=== PATIENT | male | born 1945 | race Caucasian/White ===

== ENCOUNTER 2019-12-30 11:20 | Outpatient (CLI) | payer MEDICARE, OTHER ==
[2019-12-30] MEDS ORDERED: VISIPAQUE 320 MG/ML, 150ML BOTTLE ONE (14:47)
== END 2019-12-30 23:59 | disposition home or self-care (01) ==
LOC: CVU 11:20 → RAD 23:59
PROVIDERS: ATTEND Internal Medicine Cardiovascular Disease
DX: Z01.812 Encounter for preprocedural laboratory examination (principal); Z20.828 Contact with and (suspected) exposure to other viral communicable diseases; I35.0 Nonrheumatic aortic (valve) stenosis; R06.02 Shortness of breath; R94.2 Abnormal results of pulmonary function studies; R91.1 Solitary pulmonary nodule; K82.8 Other specified diseases of gallbladder; I65.23 Occlusion and stenosis of bilateral carotid arteries; I70.0 Atherosclerosis of aorta
CPT/HCPCS: 36415; 71275; 74174; 87635; 93880; 94010; 94726; 94729; Q9967

== ENCOUNTER 2020-01-05 07:42 | Inpatient (IN) | payer MEDICARE, OTHER ==
[~2020-01-05] VITALS: Ht 182.9 cm; Wt 83.3 kg
[2020-01-05] MEDS ORDERED: SODIUM CHLORIDE 0.9% 1,000 ML IV ONE (08:49)
[2020-01-05 08:59] VITALS: BP 144/87
[2020-01-05] MEDS ORDERED: ONDANSETRON 2MG/ML, 2ML IVPush PRN ×2 (09:00→12:30)
[2020-01-05 09:20] LABS: BASOPHILS # (AUTO) 0.01 x10^3/uL (0-0.1); BASOPHILS % (AUTO) 0 % (0-1); EOSINOPHILS # (AUTO) 0.07 x10^3/uL (0-0.4); EOSINOPHILS % (AUTO) 1 % (1-7); LYMPHOCYTES # (AUTO) 1.13 x10^3/uL (1-3.4); LYMPHOCYTES % (AUTO) 15 % (22-44); MD NO; MEAN CORPUSCULAR HEMOGLOBIN 30.7 pg (27.5-34.5); MEAN CORPUSCULAR HGB CONC 33.3 g/dL (33.2-36.2); MONOCYTES # (AUTO) 0.41 x10^3/uL (0.2-0.8); MONOCYTES % (AUTO) 5 % (2-9); NEUTROPHILS # (AUTO) 5.87 x10^3/uL (1.8-6.8); NEUTROPHILS % (AUTO) 78 % (42-75); PLATELET COUNT 147 x10^3/uL (130-400); RED BLOOD COUNT 5.09 x10^6/uL (4.38-5.82); RED CELL DISTRIBUTION WIDTH 12.9 % (9.4-14.8)
[2020-01-05] MEDS ORDERED: ASPI81TA45 PO (09:28)
[2020-01-05] MEDS ORDERED: LOVA40TA2 PO (09:28)
[2020-01-05] MEDS ORDERED: MULT-464 PO (09:28)
[2020-01-05] MEDS ORDERED: LISI-167 PO (09:28)
[2020-01-05 09:30] LABS: INTERNATIONAL NORMALIZED RATIO 0.98 (0.93-1.1); PROTHROMBIN TIME 10.1 Seconds (9.6-11.5)
[2020-01-05] MEDS ORDERED: PLEASE ENTER HEIGHT AND WEIGHT MC SCH (09:30)
[2020-01-05 09:31] LABS: ALANINE AMINOTRANSFERASE 23 U/L (12-78); ANION GAP 6 mmol/L (5-15); CALCIUM 8.9 mg/dL (8.5-10.1); CHLORIDE 113 mmol/L (98-107)
[2020-01-05 09:34] LABS: ALKALINE PHOSPHATASE 92 U/L (45-117); BILIRUBIN,TOTAL 0.4 mg/dL (0.2-1.0); TOTAL PROTEIN 7.3 g/dL (6.4-8.2)
[2020-01-05] MEDS ORDERED: FENTANYL PF 100 MCG/2ML ONE ×2 (11:06→12:07)
[2020-01-05] MEDS ORDERED: LIDOCAINE-MPF 2% ,5ML ONE (11:10)
[2020-01-05] MEDS ORDERED: HEPARIN 1,000 UNITS/ML, 10ML ONE ×2 (11:10)
[2020-01-05] MEDS ORDERED: CEFAZOLIN 1,000 MG ONE (11:46)
[2020-01-05] MEDS ORDERED: PROPOFOL 10 MG/ML, 20ML ONE (11:46)
[2020-01-05] MEDS ORDERED: ROCURONIUM 10 MG/ML,10ML ONE (11:46)
[2020-01-05] MEDS ORDERED: SUGAMMADEX 200 MG/2 ML IVPush ONE (11:46)
[2020-01-05] MEDS ORDERED: SUCCINYLCHOLINE 20 MG/ML, 10ML ONE (11:46)
[2020-01-05] MEDS ORDERED: ONDANSETRON 2MG/ML, 2ML ONE (11:46)
[2020-01-05] MEDS ORDERED: DEXAMETHASONE 4 MG/ML, 1ML ONE (11:46)
[2020-01-05] MEDS ORDERED: PHENYLEPHRINE 10 MG/ML ONE (11:55)
[2020-01-05] MEDS ORDERED: PROTAMINE SULFATE 10 MG/ML, 5ML ONE (12:03)
[2020-01-05] MEDS ORDERED: LABETALOL 20 MG/4 ML IVPush PRN (12:30)
[2020-01-05] MEDS ORDERED: CLOPIDOGREL 300 MG TABLET PO ONE (12:30)
[2020-01-05] MEDS ORDERED: ACETAMINOPHEN 325 MG TABLET PO PRN (12:30)
[2020-01-05] MEDS ORDERED: hydrALAzine 20 MG/ML, 1ML IVPush PRN (12:30)
[2020-01-05] MEDS ORDERED: CLOPIDOGREL 300 MG TABLET ONE (13:30)
[2020-01-05 14:09] VITALS: BP 146/75
[2020-01-05] MEDS: ASPIRIN 81 MG TABLET EC PO SCH (14:21)
[2020-01-05] MEDS: LISINOPRIL 10 MG TABLET PO SCH (14:21)
[2020-01-05] MEDS: HYDROcodone/APAP 5/325 TABLET PO PRN ×2 (15:29→17:51)
[2020-01-05 19:12] VITALS: BP 136/84
[2020-01-05] MEDS ORDERED: LOVASTATIN 40 MG TABLET PO SCH (21:00)
[2020-01-06] VITALS: BP 120/70
[2020-01-06 05:06] LABS: ANION GAP 6 mmol/L (5-15); CALCIUM 8.8 mg/dL (8.5-10.1); CHLORIDE 107 mmol/L (98-107)
[2020-01-06 05:07] LABS: CREATININE 1.04 mg/dL (0.7-1.3)
[2020-01-06 05:14] LABS: BASOPHILS % (AUTO) 0 % (0-1); EOSINOPHILS # (AUTO) 0.01 x10^3/uL (0-0.4); EOSINOPHILS % (AUTO) 0 % (1-7); LYMPHOCYTES # (AUTO) 0.88 x10^3/uL (1-3.4); LYMPHOCYTES % (AUTO) 7 % (22-44); MD NO; MEAN CORPUSCULAR HEMOGLOBIN 30.8 pg (27.5-34.5); MEAN CORPUSCULAR HGB CONC 33.2 g/dL (33.2-36.2); MEAN PLATELET VOLUME 8.7 fL (7.4-10.4); MONOCYTES # (AUTO) 0.52 x10^3/uL (0.2-0.8); MONOCYTES % (AUTO) 4 % (2-9); NEUTROPHILS # (AUTO) 10.69 x10^3/uL (1.8-6.8); NEUTROPHILS % (AUTO) 88 % (42-75); PLATELET COUNT 141 x10^3/uL (130-400); RED BLOOD COUNT 4.46 x10^6/uL (4.38-5.82); RED CELL DISTRIBUTION WIDTH 13.1 % (9.4-14.8)
[2020-01-06 08:06] VITALS: BP 120/63
[2020-01-06] MEDS ORDERED: CLOPIDOGREL 75 MG TABLET PO SCH (09:00)
[2020-01-06] MEDS: ASPIRIN 81 MG TABLET EC PO SCH (10:03)
[2020-01-06] MEDS: LISINOPRIL 10 MG TABLET PO SCH (10:03)
[2020-01-06] MEDS ORDERED: CLOP75TA PO (10:52)
[2020-01-06 13:16] VITALS: BP 124/75
== END 2020-01-06 16:05 | disposition home or self-care (01) | DRG 266 ==
LOC: ORIP 07:42 → 5SO 13:52 → DCLOUNGE 01-06 15:55
PROVIDERS: ADMIT Internal Medicine Cardiovascular Disease; ATTEND Internal Medicine Cardiovascular Disease
PROC: B24BZZ4 Ultrasonography of Heart with Aorta, Transesophageal (ICD-10-PCS; 2020-01-05)
PROC: B3101ZZ Fluoroscopy of Thoracic Aorta using Low Osmolar Contrast (ICD-10-PCS; 2020-01-05)
PROC: 02RF38Z Replacement of Aortic Valve with Zooplastic Tissue, Percutaneous Approach (ICD-10-PCS; principal; 2020-01-05 12:00)
DX: I35.2 Nonrheumatic aortic (valve) stenosis with insufficiency (principal); Z00.6 Encounter for examination for normal comparison and control in clinical research program; I50.33 Acute on chronic diastolic (congestive) heart failure; I44.7 Left bundle-branch block, unspecified; E78.5 Hyperlipidemia, unspecified; I25.10 Atherosclerotic heart disease of native coronary artery without angina pectoris; Z86.73 Personal history of transient ischemic attack (TIA), and cerebral infarction without residual deficits
CPT/HCPCS: 33361; 36415; 76937; 80048; 80053; 85025; 85347; 85610; 86850; 86900; 86923; 92986; 93005; 93306; 93312; 93321; 93325; 93355; C1760; C1769; C1894; G0378; J0690; J1100; J1644; J2405; J2704; J2720; J3010; J0330; J2370; J7030

== ENCOUNTER → 2020-02-09 | Outpatient (CLI) | payer MEDICARE, OTHER ==
[~2020-02-09] MED LIST: ASPI81TA45 PO; CLOP75TA PO; LISI-167 PO; LOVA40TA2 PO; MULT-464 PO
== END | disposition home or self-care (01) ==
LOC: CVU 08:37
PROVIDERS: ATTEND Internal Medicine Cardiovascular Disease
DX: I11.9 Hypertensive heart disease without heart failure (principal); E78.5 Hyperlipidemia, unspecified; I65.29 Occlusion and stenosis of unspecified carotid artery; Z95.2 Presence of prosthetic heart valve; Z87.891 Personal history of nicotine dependence
CPT/HCPCS: 93306

== ENCOUNTER → 2021-01-03 | Outpatient (CLI) | payer MEDICARE, OTHER | END | disposition home or self-care (01) | LOC: CFH 10:46 | PROVIDERS: ATTEND Internal Medicine Cardiovascular Disease | DX: Z01.810 Encounter for preprocedural cardiovascular examination (principal); R06.02 Shortness of breath; I35.0 Nonrheumatic aortic (valve) stenosis; I65.29 Occlusion and stenosis of unspecified carotid artery; I11.9 Hypertensive heart disease without heart failure; Z87.891 Personal history of nicotine dependence; Z95.4 Presence of other heart-valve replacement | CPT/HCPCS: 93306 ==